=== PATIENT | female | born 1970 | race Caucasian/White ===

== ENCOUNTER → 2021-12-20 | Day surgery (SDC) | payer OTHER ==
[~2021-12-20] VITALS: Ht 163 cm; Wt 102.0 kg
[~2021-12-20] MED LIST: ASPIRIN EC81 MG PO; CALCIUM/VIT D PO; CELEBREX **OUT100 MG PO; HCTZ12.5 MG PO; HYDROCODON-ACE1 EAC2 PO; LANTUS SOL100 UNIT/1 SC; LISINOPRIL10 MG PO; OMEPRAZOLE40 MG PO; OZEMPIC1 MG/0.71 IJ; REQUIP1 MG PO
[2021-12-20 08:21] LABS: HCG (URINE) SCREEN NEGATIVE (NEGATIVE)
[2021-12-20 08:21] LABS: HCT 46.6 % (37.0-47.0); HGB 15.5 g/dl (12.5-16.0); MCH 30.4 pg (25.0-31.0); MCHC 33.3 g/dL (32.0-36.0); MCV 91.4 fL (78.0-100.0); MPV 9.7 fL (6.0-9.5); RBC 5.1 M/uL (4.20-5.40); RDW 12.8 % (11.5-14.0); WBC 19.1 K/uL (4.0-10.5)
[2021-12-20 08:43] LABS: ALBUMIN 3.5 g/dL (3.4-5.0); BILIRUBIN - TOTAL 0.4 mg/dL (0.2-1.0); BUN/CREAT RATIO (CALC) 9.9 RATIO; CREATININE 0.71 mg/dL (0.51-0.95); GLOBULIN (CALCULATION) 4.2 g/dL; TOTAL PROTEIN 7.7 g/dL (6.4-8.2)
== END | disposition home or self-care (01) ==
LOC: FAS 07:51
PROVIDERS: Surgery
DX: Z12.11 Encounter for screening for malignant neoplasm of colon (principal); E78.5 Hyperlipidemia, unspecified; I10 Essential (primary) hypertension; J44.9 Chronic obstructive pulmonary disease, unspecified; E11.9 Type 2 diabetes mellitus without complications; F17.210 Nicotine dependence, cigarettes, uncomplicated; Z79.82 Long term (current) use of aspirin; Z79.84 Long term (current) use of oral hypoglycemic drugs
CPT/HCPCS: 36415; 80053; 84703; J1610; J2704; J7120